=== PATIENT | female | born 1985 | race Caucasian/White ===

== ENCOUNTER 2017-05-28 18:44 | Emergency (ER) | payer OTHER ==
[2017-05-28] MEDS ORDERED: Magnesium Citrate Solution 296 ML Bottle PO ONE (19:25)
[2017-05-28] MEDS ORDERED: Acetaminophen Susp 325 MG/10.15 ML UD Cup PO ONE (19:25)
[2017-05-28] MEDS ORDERED: Acetaminophen 325 MG Tab PO ONE (19:41)
--- NOTE | 2017-05-28 20:58 | EDM.PDOC ---
ED HPI GENERAL MEDICAL PROBLEM - General Chief Complaint: Gastrointestinal Problem Stated Complaint: BOWEL PROBLEMS Time Seen by Provider: 05/28/17 19:10 Source of Information: Reports: Patient History Limitations: Reports: No Limitations - History of Present Illness INITIAL COMMENTS - FREE TEXT/NARRATIVE: 31-year-old female presents for evaluation and treatment of constipation. Patient reports that she has not had a bowel movement for the last week. 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 This is been done by Dr. Argueta in [place]. She states that she has been followed up with her surgeon. Last time she saw her surgeon she was made aware of the constipation was started on MiraLAX daily and Colace daily. She states that she has been taking these as prescribed. Takes Colace 3 tabs every morning and MiraLAX daily. Patient also reports that she takes magnesium citrate every Tuesday. She did not do this this past Tuesday. She states that she feels there is a large amount of stool in her rectum. She states that she cannot get comfortable and states because of the pain. She reports some minor abdominal discomfort. No nausea, vomiting or urinary symptoms. Patient states that she is passing gas but not as much as normal. She states that she is passing gas but not passing much today. Duration: Week(s): (1) Abdomen Pain Score (Numeric/FACES): 6 - Related Data Allergies Allergy/AdvReac Type Severity Reaction Status Date / Time No Known Allergies Allergy Verified 05/28/17 19:06 Home Meds: Home Meds B12/Levomefolate Calcium/B-6 [Folbic Rf Tablet] 1 tab PO DAILY 05/28/17 [History ] Gabapentin [Neurontin] 300 mg PO QPM 05/28/17 [History] tiZANidine [Zanaflex] 4 mg PO QPM 05/28/17 [History] Past Medical History GLOBAL LEAD History: Reports: - Past Surgical History GI Surgical History: Reports: Bariatric Procedure Female Surgical History: Reports: Tubal Ligation Social & Family History - Tobacco Use Smoking Status *Q: Never Smoker - Caffeine Use Caffeine Use: Reports: None - Recreational Drug Use Recreational Drug Use: No ED ROS GENERAL - Review of Systems Review Of Systems: See Below GI/Abdominal: Reports: Abdominal Pain, Constipation, Flatus. Denies: Nausea, Vomiting : Reports: No Symptoms. Denies: Dysuria ED EXAM, GI/ABD - Physical Exam Exam: See Below Exam Limited By: No Limitations General Appearance: Alert, WD/WN, Moderate Distress Respiratory/Chest: No Respiratory Distress, Lungs Clear, Normal Breath Sounds Cardiovascular: Normal Peripheral Pulses, Regular Rate, Rhythm, No Murmur GI/Abdominal Exam: Normal Bowel Sounds, Soft, Non-Tender. No: Distended Rectal (Female) Exam: Normal Exam, Normal Rectal Tone, Fecal Impaction Neurological: Alert, Oriented, Normal Cognition Psychiatric: Normal Affect, Normal Mood Skin Exam: Warm, Dry, Normal Color Course - Vital Signs Last Recorded V/S: Last Vital Signs Temp 36.9 C 05/28/17 19:02 Pulse 63 05/28/17 19:02 Resp 18 05/28/17 19:02 BP 124/83 05/28/17 19:02 Pulse Ox 100 05/28/17 19:02 - Orders/Labs/Meds Meds: Medications Discontinued Medications Generic Name Dose Route Start Last Admin Trade Name Kurtis PRN Reason Stop Dose Admin Acetaminophen 975 mg 05/28/17 19:25 05/28/17 19:42 Tylenol Solution PO 05/28/17 19:26 Not Given ONETIME ONE Acetaminophen 975 mg 05/28/17 19:41 05/28/17 19:47 Tylenol PO 05/28/17 19:42 975 mg NOW ONE Administration Magnesium Citrate 150 ml 05/28/17 19:25 05/28/17 19:47 Citrate Of Magnesia PO 05/28/17 19:26 150 ml ONETIME ONE Administration - Radiology Interpretation Free Text/Narrative:: Flat and upright shows air fluid lines. Suspected to be from constipation and not from bowel obstruction. - Re-Assessments/Exams Free Text/Narrative Re-Assessment/Exam: 05/28/17 21:15 Patient received half a bottle magnesium citrate and an enema. She had a large bowel movement and feels greatly improved at this time. She is passing gas like normal now. Patient feels comfortable going home. I will have her discuss with her surgeon further bowel regimens. She is instructed to take the second half of the bottle magnesium citrate she is a have a large bowel movement by tomorrow morning. Discharge instructions as documented. Departure - Departure Time of Disposition: 21:18 Disposition: Home, Self-Care 01 Condition: Fair Clinical Impression: Constipation - Discharge Information Instructions: Constipation, Adult, [id number] Referrals: Malena Boo PA-C [Primary Care Provider] - Forms: ED Department Discharge Additional Instructions: Continue with your current plan of care. If you do not have another large bowel movement by tomorrow morning, drink the second half of the magnesium citrate. make sure you are drinking plenty of water. Follow-up with your surgeon. Inform her if you continue to have difficulties with constipation. Please return to the ER if your symptoms change or worsen.
--- NOTE | 2017-05-30 09:15 | CR ---
Abdomen: Supine and upright views of the abdomen were obtained. Surgical clips are seen within the pelvis. Scattered gas within nondilated small bowel and colon is seen. Air-fluid levels are seen within the right colon and distal small bowel. These findings can be seen normally. No abnormal amounts of stool are seen within the colon. No free air is seen. Surgical anastomotic sutures are noted within the left upper abdomen. Bony structures are within normal limits for the patient's age. Calcifications are seen within the pelvis compatible with phleboliths. Impression: 1. Incidental findings. Nothing acute is identified. Diagnostic code #2
== END 2017-05-28 21:29 | disposition home or self-care (01) ==
LOC: JD.ED 18:44
DX: K59.00 Constipation, unspecified (principal); Z79.899 Other long term (current) drug therapy
CPT/HCPCS: 74019; 99284; A9270; 99283

== ENCOUNTER 2017-07-23 15:55 | Emergency (ER) | payer OTHER ==
[2017-07-23] MEDS ORDERED: Lidocaine 2% Jelly 10 ML Urojet MUCMEM ONE (16:24)
--- NOTE | 2017-07-23 16:28 | EDM.PDOC ---
ED HPI GENERAL MEDICAL PROBLEM - General Chief Complaint: Abdominal Pain Stated Complaint: CONSTIPATED Time Seen by Provider: 07/23/17 16:12 Source of Information: Reports: Patient History Limitations: Reports: No Limitations - History of Present Illness INITIAL COMMENTS - FREE TEXT/NARRATIVE: 32-year-old female presents to the ED due to diffuse lower abdominal discomfort and rectal pressure discomfort. She reports she has issues with constipation since she had gastric bypass 6 months ago. She had used some Percocet tablets over the last week for a labial abscess or infected sebaceous cyst. This slowed her bowel down immensely. She has taken extra doses of MiraLAX and a mesial citrate over the last several days to get her bowels to work without much luck. She takes Colace when necessary and she took a natural pathic medication that contained chamomile tea and senna without any relief. She states 2 days ago she had a little bit of loose stool around the hard stool she can feel in the rectal vault. She feels a bulge into her vagina as well. She denies any rectal bleeding or blood when she wipes. No known problems with hemorrhoids. She states she can feel very hard stool in the rectal vault but is unable to push it out. Onset: Gradual Onset Date: 07/12/17 Duration: Day(s): Location: Reports: Abdomen (Suprapubic pressure discomfort. No severe cramps), Other (Rectal pressure.) Quality: Reports: Pressure Severity: Moderate Improves with: Reports: None (Especially in the rectal vault.) Worsens with: Reports: None Context: Reports: Other (Severe constipation induced by Percocet tablets be utilized when necessary for labial). Denies: Activity, Exercise, Lifting, Sick Contact Associated Symptoms: Reports: Loss of Appetite, Other (Mild nausea. No vomiting) Treatments CLIENT INSIGHTS CONSULTANT: Reports: Other (see below) (Only Citroma and MiraLAX powder.) Right Lower Abdomen Pain Score (Numeric/FACES): 2 - Related Data Allergies Allergy/AdvReac Type Severity Reaction Status Date / Time No Known Allergies Allergy Verified 05/28/17 19:06 Home Meds: Home Meds B12/Levomefolate Calcium/B-6 [Folbic Rf Tablet] 1 tab PO WEEKLY 05/28/17 [ History] Gabapentin [Neurontin] 300 mg PO QPM 05/28/17 [History] tiZANidine [Zanaflex] 4 mg PO QPM 05/28/17 [History] Calcium Carbonate [Calcium] 400 mg PO BID 07/23/17 [History] Cholecalciferol (Vitamin D3) [Vitamin D3] 2,000 unit PO DAILY 07/23/17 [History] Iron,Carbonyl/Vit C/Fos [Chewable Iron 30 mg Tablet] 1 tab PO DAILY 07/23/17 [ History] Magnesium Citrate [Citrate of Magnesia] 1 applic PO ASDIRECTED 07/23/17 [History ] Multivitamin [Multivitamins] 1 tab PO TID 07/23/17 [History] Polyethylene Glycol 3350 [MiraLAX] 17 gr PO BID 07/23/17 [History] Sulfamethoxazole/Trimethoprim [Septra DS] 1 tab PO BID 07/23/17 [History] Past Medical History Gastrointestinal History: Reports: Chronic Constipation, Other (See Below) Other Gastrointestinal History: prone to constipation since the gastric bypass MARKETING INFORMATION 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: - Past Surgical History GI Surgical History: Reports: Bariatric Procedure (Bariatric surgery with gastric bypass 6 months ago.) Female Surgical History: Reports: Tubal Ligation Social & Family History - Tobacco Use Smoking Status *Q: Never Smoker - Caffeine Use Caffeine Use: Reports: None - Recreational Drug Use Recreational Drug Use: No - Living Situation & Occupation Living situation: Reports: Occupation: Unemployed ED ROS GENERAL - Review of Systems Review Of Systems: See Below Constitutional: Reports: Decreased Appetite (Has more or less plateaued in her weight loss lately.), Weight Loss. Denies: Fever, Chills, Malaise, Weakness, Fatigue HEENT: Reports: No Symptoms Respiratory: Reports: No Symptoms Cardiovascular: Reports: No Symptoms Endocrine: Reports: No Symptoms GI/Abdominal: Reports: Abdominal Pain, Constipation (See history of present illness David matos gastric bypass.) : Reports: Other (Pressure in the rectal vault and into the vagina.) Musculoskeletal: Reports: No Symptoms Skin: Reports: No Symptoms Neurological: Reports: No Symptoms Psychiatric: Reports: No Symptoms ED EXAM, GI/ABD - Physical Exam Exam: See Below Exam Limited By: No Limitations General Appearance: Alert, WD/WN, No Apparent Distress Eyes: Bilateral: Normal Appearance Respiratory/Chest: No Respiratory Distress, Lungs Clear, Normal Breath Sounds Cardiovascular: Normal Peripheral Pulses, Regular Rate, Rhythm, No Edema, No Gallop, No Murmur GI/Abdominal Exam: Normal Bowel Sounds, Soft, Non-Tender, No Organomegaly, No Mass, Pelvis Stable. No: Guarding, Rigid, Rebound, Tender Back Exam: Normal Inspection, Full Range of Motion. No: CVA Tenderness (L), CVA Tenderness (R) Extremities: Normal Inspection, Normal Range of Motion, Non-Tender, No Pedal Edema Neurological: Alert, Oriented, CN II-XII Intact, Normal Cognition, Normal Gait Psychiatric: Normal Affect, Normal Mood Skin Exam: Warm, Dry, Intact, Normal Color, No Rash Course - Vital Signs Last Recorded V/S: Last Vital Signs Temp 37.4 C 07/23/17 16:08 Pulse 58 L 07/23/17 16:08 Resp 20 07/23/17 16:08 BP 128/89 07/23/17 16:08 Pulse Ox 100 07/23/17 16:08 - Orders/Labs/Meds Orders: Active Orders 24 hr Category Date Time Status Enema [RC] ASDIRECTED Care 07/23/17 16:25 Active Enema [RC] ASDIRECTED Care 07/23/17 18:09 Active Abdomen 1V Flat [CR] Stat Exams 07/23/17 16:23 Taken Meds: Medications Discontinued Medications Generic Name Dose Route Start Last Admin Trade Name Kurtis PRN Reason Stop Dose Admin Lidocaine HCl 10 ml 07/23/17 16:24 07/23/17 17:12 Xylocaine 2% Jelly MUCMEM 07/23/17 16:25 10 ml ONETIME ONE Administration Magnesium Citrate 300 ml 07/23/17 17:13 07/23/17 17:19 Citrate Of Magnesia PO 07/23/17 17:14 296 ml ONETIME ONE Administration - Radiology Interpretation Free Text/Narrative:: 32-year-old female presents the ED with diffuse lower abdominal discomfort and rectal pressure discomfort. She reports that she was on Percocet for an infected sebaceous cyst in her labia over the last 10 days she has developed severe constipation. She has not had a good bowel movement for about 11 days. She's had intermittent problems with constipation since she had gastric bypass performed about 6 months ago. And taking extra doses of MiraLAX powder Senokot preparation Colace and has used magnesium citrate over the last few days without much results. She had a little bit of watery stool or staining 2 days ago. She is well aware of tremendous pressure in the rectal vault bulging up into the vagina. She is not able to push this hard constipated stool out. Plan 1 view done will be done to assess the extent of the constipation. Plan will be then to provide topical lidocaine to the anus any rectal vault. Then a Fleet enema containing mineral oil and see what happens. She may well need further softening of hard stool bolus with soapsuds enema if amenable. - Re-Assessments/Exams Free Text/Narrative Re-Assessment/Exam: 07/23/17 17:12 KUB reveals extensive constipation. Most of the right hemicolon and hepatic flexure is stool-filled. There is a little bit of a break in the transverse colon but the descending colon and rectal vault are stool-filled. We' ll proceed with Fleet enema after lidocaine to the anus and rectal vault. Wait and see what results we get. In the meantime I will also have her drink a bottle of Citroma or magnesium citrate while she is in the department. 07/23/17 17:52 Patient has been able to retain Fleet enema quite well. She has not yet gone up to the commode. 07/23/17 18:10 Patient help the enema for about 15 minutes and then just got up and sat on the commode and pushed one small firm piece of stool out. Plan Will proceed therefore with soapsuds enema. 07/23/17 18:44 soapsuds enema has been given and she is now starting to have a bowel movement. Departure - Departure Time of Disposition: 19:20 Disposition: Home, Self-Care 01 Condition: Fair Clinical Impression: Constipation by delayed colonic transit Abdominal pain Qualifiers: Abdominal location: lower abdomen, unspecified Qualified Code(s): R10.30 - Lower abdominal pain, unspecified - Discharge Information Instructions: Abdominal Pain, Adult, [id number] Referrals: Malena Boo PA-C [Primary Care Provider] - Forms: ED Department Discharge Additional Instructions: Evaluation the emergency room today in regards to constipation that developed after using Percocet for a period of time due to an infected sebaceous cyst in the vulva. As you indicated this occurs it intermittently since you had your gastric bypass performed. No good bowel movement for the last 11 days with associated rectal pressure discomfort and lower abdominal pain. An x-ray of the abdomen shows stool throughout the colon particularly right hemicolon with a bit of a space in the upper transverse colon across the upper abdomen but the left colon and rectal vault were stool-filled. This indicates a moderate to severe form of constipation. You're treated with a Fleet enema with mineral initially but not much success occurred with this. Soapsuds enema was then given and seemed to work much better in terms of getting her bowels to start to empty out. Also you were given Citroma or magnesium citrate 10 ounces by mouth while in the ED to get her bowels working. I would suggest MiraLAX powder 17 g or 1 scoop every day for the next 10 days to make sure your bowel function returns to normal. Of course expect further problems when she get home tonight as the magnesium citrate starts to work all should move a good for 5 times ending with some diarrhea. - My Orders Last 24 Hours: My Active Orders 07/23/17 16:23 Abdomen 1V Flat [CR] Stat 07/23/17 16:25 Enema [RC] ASDIRECTED 07/23/17 18:09 Enema [RC] ASDIRECTED - Assessment/Plan Last 24 Hours: My Active Orders 07/23/17 16:23 Abdomen 1V Flat [CR] Stat 07/23/17 16:25 Enema [RC] ASDIRECTED 07/23/17 18:09 Enema [RC] ASDIRECTED
[2017-07-23] MEDS ORDERED: Magnesium Citrate Solution 296 ML Bottle PO ONE (17:13)
--- NOTE | 2017-07-24 14:26 | CR ---
Abdomen: Supine view of the abdomen was obtained. Comparison: Prior abdominal x-ray of 05/28/17. Incidental surgical clips are seen within the pelvis. Mild increased stool is noted throughout the colon. Bowel gas pattern is otherwise unremarkable. Bony structures appear within normal limits for the patient's age. No soft tissue abnormality is appreciated. Calcifications are identified within the pelvis which are compatible with phleboliths. Impression: 1. Slight increased stool throughout the colon. 2. Other incidental findings. Nothing acute is seen. Diagnostic code #2
== END 2017-07-23 19:23 | disposition home or self-care (01) ==
LOC: JD.ED 15:55
DX: K59.01 Slow transit constipation (principal); Z79.899 Other long term (current) drug therapy; Z98.84 Bariatric surgery status
CPT/HCPCS: 74018; 99284; A9270; 99283

== ENCOUNTER 2022-12-04 16:39 | Emergency (ER) | payer OTHER ==
[2022-12-04 16:59] LABS: APPEARANCE,URINE CLOUDY (Clear); BILIRUBIN,URINE NEGATIVE (Negative); COLOR,URINE YELLOW (Yellow); GLUCOSE,URINE NEGATIVE (Negative); KETONES,URINE TRACE (Negative); NITRITE,URINE NEGATIVE (Negative); OCCULT BLOOD,URINE 1+ (Negative); PROTEIN,URINE 2+ (Negative)
[2022-12-04 17:10] LABS: BACTERIA,URINE MANY /hpf (FEW); LEUKOCYTE ESTERASE,URINE 3+ (Negative); MUCUS,URINE MODERATE /hpf (FEW); WBC,URINE TOO NUMEROUS TO CNT /hpf (0-5)
[2022-12-04] MEDS ORDERED: cefTRIAXone 1 GM, Lidocaine 1% 2.1 ML IM ONE ×2 (18:02)
== END 2022-12-04 18:25 | disposition home or self-care (01) ==
LOC: JD.ED 16:39
DX: N39.0 Urinary tract infection, site not specified (principal); Z87.891 Personal history of nicotine dependence; Z79.899 Other long term (current) drug therapy
CPT/HCPCS: 81001; 96372; 99283; J0696; J3490